=== PATIENT | male | born 1965 | race Caucasian/White ===

== ENCOUNTER 2018-02-28 12:21 | Emergency (ER) | payer OTHER ==
[2018-02-28] MEDS ORDERED: Triple Antibiotic Oint 1 GM Packet ONE (13:15)
[2018-02-28] MEDS ORDERED: Lidocaine 1% 20 ML MDV ONE (13:15)
[2018-02-28] MEDS ORDERED: Adacel (T-DAP) 0.5 ML VIAL ONE (13:15)
[2018-02-28] MEDS ORDERED: Ibuprofen 800 MG TAB ONE (13:49)
[2018-02-28] MEDS ORDERED: Sulfameth/Trimethoprim DS 800-160mg TAB ONE (13:49)
--- NOTE | 2018-02-28 14:08 | RAD ---
LEFT INDEX FINGER 3 VIEWS: Date: 02/28/18 HISTORY: Metallic foreign body. COMPARISON: None. FINDINGS: There is focal soft tissue swelling along the volar aspect of the middle phalanx index finger. No rad iopaque foreign object is appreciated. No acute fracture or malalignment. IMPRESSION: Volar soft tissue swelling without acute fracture or malalignment. No radiopaque foreign object is ap preciated. POS: [facility]
== END 2018-02-28 14:00 | disposition home or self-care (01) ==
LOC: MADERS 12:21
DX: L03.032 Cellulitis of left toe (principal); L03.031 Cellulitis of right toe; F17.220 Nicotine dependence, chewing tobacco, uncomplicated
CPT/HCPCS: 10060; 90715; J2001

== ENCOUNTER 2019-01-05 12:19 | Emergency (ER) | payer BC, OTHER ==
[2019-01-05] MEDS ORDERED: Ibuprofen 800 MG TAB ONE (12:51)
== END 2019-01-05 13:30 | disposition home or self-care (01) ==
LOC: MADERS 12:19
DX: J02.9 Acute pharyngitis, unspecified (principal); F17.220 Nicotine dependence, chewing tobacco, uncomplicated
CPT/HCPCS: 87081; 87430; 99283

== ENCOUNTER 2019-02-17 10:38 | Emergency (ER) | payer BC ==
[2019-02-17] MEDS ORDERED: Fluorescein Opthalmic Strip ONE (11:29)
[2019-02-17] MEDS ORDERED: Tetracaine 0.5% OPHTH SOLN/PF 4 ML BOT ONE (11:29)
== END 2019-02-17 12:00 | disposition home or self-care (01) ==
LOC: MADERS 10:38
DX: S05.01XA Injury of conjunctiva and corneal abrasion without foreign body, right eye, initial encounter (principal); F17.220 Nicotine dependence, chewing tobacco, uncomplicated; X58.XXXA Exposure to other specified factors, initial encounter
CPT/HCPCS: 99283

== ENCOUNTER 2019-02-22 14:47 | Emergency (ER) | payer BC, SELFPAY | END 2019-02-22 15:30 | disposition home or self-care (01) | LOC: MADERS 14:47 | DX: Z01.00 Encounter for examination of eyes and vision without abnormal findings (principal); F17.220 Nicotine dependence, chewing tobacco, uncomplicated | CPT/HCPCS: 99282 ==